=== PATIENT | female | born 1995 | race African-American/Black ===

== ENCOUNTER 2016-12-24 17:12 | Emergency (ER) | payer MEDICAID ==
[~2016-12-24] VITALS: Ht 154.9 cm; Wt 92.2 kg
[2016-12-24 17:46] LABS: HEMOGLOBIN 12.2 g/dL (11.7-16.4)
[2016-12-24 17:48] LABS: ASPARTATE AMINO TRANSFERASE 12 U/L (15-37); BLOOD UREA NITROGEN 11 mg/dL (7-18)
[2016-12-24 21:58] VITALS: BP 130/55
== END 2016-12-24 22:01 | disposition home or self-care (01) ==
LOC: ED 21:45
DX: O26.891 Other specified pregnancy related conditions, first trimester (principal); R10.84 Generalized abdominal pain
CPT/HCPCS: 36415; 76830; 80053; 81003; 83690; 84702; 84703; 85025; 86901; 99285